=== PATIENT | male | born 1990 | race Caucasian/White ===

== ENCOUNTER 2017-02-21 13:56 | Emergency (ER) | payer BC ==
[2017-02-21 14:26] VITALS: BP 141/92
[2017-02-21] MEDS ORDERED: cefTRIAXone VIAL(*) 250 MG VIAL IM ONE (15:13)
[2017-02-21] MEDS ORDERED: Azithromycin TAB* 250 MG PO ONE (15:15)
[2017-02-21] MEDS ORDERED: Lidocaine 1% MPF* 2 ML VIAL INJ ONE (15:17)
--- NOTE | 2017-02-21 17:59 | UC ---
Complaint Male HPI - HPI Summary HPI Summary: HAS HAD SEVERAL DAYS OF DISCOMFORT WITH URINATION, NO DISCHARGE. NO LESIONS. HAS HAD LOW GRADE FEVER AND SORE THROAT. TENDERNESS IN (SUPERIOR POLE) OF LEFT TESTICLE. NO RECTAL PAIN. HAS HAD RECENT UNPROTECTED ORAL SEX WITH NEW PARTNER. NO HISTORY OF PREVIUOUS STDS. NO RASHES OR LESIONS, BUT ITCHY AREA NEAR LEFT ( DENS) OF PENIS. - History of Current Complaint Chief Complaint: UCGU Stated Complaint: URINARY ISSUE Time Seen by Provider: 02/21/17 14:31 Hx Obtained From: Patient Onset/Duration: Gradual Onset, Lasting Days, Still Present Timing: Intermittent Severity Initially: Mild Severity Currently: Mild Pain Intensity: 1 Pain Scale Used: 0-10 Numeric Location: Testicle Character: Burning Aggravating Factor(s): Voiding Associated Signs And Symptoms: Positive: Negative, Dysuria. Negative: Back Pain , Fever, Hematuria, Constipation, Blood in Stool, Rectal Pain, Appetite, Nausea , Vomiting(# Of Episodes =), Penile Swelling, Penile Discharge - Risk Factors Testicular Torsion: Negative - Allergies/Home Medications Allergies/Adverse Reactions: Allergies Allergy/AdvReac Type Severity Reaction Status Date / Time Shellfish Allergy Allergy Severe DYSPNEA, Verified 03/29/13 19:36 HIVES, NUMB/TINGLING MOUTH Sulfa Drugs Allergy Severe SEE NOTE Verified 03/29/13 19:36 BEESTINGS Allergy Severe Swelling Uncoded 03/29/13 19:36 Home Medications: Home Medications Ascorbic Acid [Vitamin C] 1,000 mg PO 02/21/17 [History] Echinacea [Echinacea Plus] 1 cap PO 02/21/17 [History] PMH/Surg Hx/FS Hx/Imm Hx Previously Healthy: Yes - Surgical History Surgical History: None - Family History Known Family History: Negative: Diabetes, Renal Disease, Blood Disorder - Social History Occupation: Employed Full-time Lives: With Family Alcohol Use: Rare Substance Use Type: None Smoking Status (MU): Never Smoked Tobacco Review of Systems Constitutional: Negative Skin: Negative Eyes: Negative ENT: Negative Respiratory: Negative Cardiovascular: Negative Gastrointestinal: Negative Genitourinary: Dysuria Motor: Negative Neurovascular: Negative Musculoskeletal: Negative Neurological: Negative Psychological: Negative All Other Systems Reviewed And Are Negative: Yes Physical Exam Triage Information Reviewed: Yes Appearance: Well-Appearing, No Pain Distress, Well-Nourished Vital Signs: Initial Vital Signs Temp 99.2 F 02/21/17 14:20 Pulse 96 02/21/17 14:20 Resp 18 02/21/17 14:20 BP 141/92 02/21/17 14:20 Pulse Ox 98 02/21/17 14:20 Vital Signs Reviewed: Yes Eye Exam: Normal Eyes: Positive: Conjunctiva Clear ENT: Positive: Hearing grossly normal, Pharyngeal erythema, TMs normal, Tonsillar swelling Dental Exam: Normal Neck exam: Normal Neck: Positive: Supple, Nontender, No Lymphadenopathy Respiratory Exam: Normal Respiratory: Positive: Chest non-tender, Lungs clear, Normal breath sounds, No respiratory distress, No accessory muscle use Cardiovascular Exam: Normal Cardiovascular: Positive: RRR, No Murmur, Pulses Normal Abdominal Exam: Normal Abdomen Description: Positive: Nontender, No Organomegaly, Soft, Other: - NO TESTICULAR TENDERNESS DURING PHYSICAL EXAMINATION. NO LESIONS, RASHES, OR DISCHARGE OF PENIS DURING PHYSICAL EXAM Bowel Sounds: Positive: Present Musculoskeletal Exam: Normal Musculoskeletal: Positive: Strength Intact, ROM Intact Neurological Exam: Normal Psychological Exam: Normal Skin Exam: Normal Complaint Male Course/Dx - Differential Dx/Diagnosis Differential Diagnosis/HQI/PQRI: Epididymitis, Prostatitis, Urinary Tract Infection Provider Diagnoses: DYSURIA; STD PROPHYLAXIS; TONSILLITS Discharge - Discharge Plan Condition: Stable Disposition: HOME Patient Education Materials: Dysuria (ED) Referrals: [facility] [place] PHYSICIAN REFERRAL [Outside] Non Staff,Doctor [Medical Doctor] - Tony Alvarado MD [Medical Doctor] -
== END 2017-02-21 15:33 | disposition home or self-care (01) ==
LOC: UCEAST 13:56
DX: R30.0 Dysuria (principal); J03.90 Acute tonsillitis, unspecified; Z88.2 Allergy status to sulfonamides; Z91.013 Allergy to seafood; Z91.030 Bee allergy status; Z20.2 Contact with and (suspected) exposure to infections with a predominantly sexual mode of transmission
CPT/HCPCS: 81003; 87070; 87491; 87591; 87651; 96372; 99202; A9270-GY; G0463; J0696

== ENCOUNTER 2017-02-26 09:25 | Emergency (ER) | payer BC ==
[2017-02-26 09:32] VITALS: BP 151/91
--- NOTE | 2017-02-26 10:59 | UC ---
Complaint Male HPI - HPI Summary HPI Summary: complaint of sore throat took vitamin C and echinachea- left testicle at the same time started over 2 weeks ago started to feels a pulsing tickle and dull pain with urination on left side of penis- seen the next day at urgent care treated with antibiotics and sore throat and burning with urination subsided- negative for chlamydia, gonnorhea complaint that he still has a dull ache in urinary tract and feels like he has urinate frequently dull achy pain worse when he is sitting since taking antibiotics steady stream of urine denies fever and chills denies lower back and flank pain stool looser since taking antibiotics right inguinal hernia for over 10 years never followed up with urology not taking any medication for pain - History of Current Complaint Hx Obtained From: Patient <Glenny Hutchison - Last Filed: 02/26/17 11:56> <Rosa Cosme - Last Filed: 02/26/17 14:17> - History of Current Complaint Chief Complaint: UCGU Stated Complaint: RECHECK UTI Time Seen by Provider: 02/26/17 10:41 - Allergies/Home Medications Allergies/Adverse Reactions: Allergies Allergy/AdvReac Type Severity Reaction Status Date / Time Shellfish Allergy Allergy Severe DYSPNEA, Verified 03/29/13 19:36 HIVES, NUMB/TINGLING MOUTH Sulfa Drugs Allergy Severe SEE NOTE Verified 03/29/13 19:36 BEESTINGS Allergy Severe Swelling Uncoded 03/29/13 19:36 PMH/Surg Hx/FS Hx/Imm Hx Previously Healthy: No - URI symptoms Cardiovascular History: Hypertension - Surgical History Surgical History: None - Family History Known Family History: Negative: Hypertension, Diabetes, Renal Disease, Blood Disorder - Social History Occupation: Employed Full-time Lives: With Family Alcohol Use: Rare Substance Use Type: None Smoking Status (MU): Never Smoked Tobacco <Glenny Hutchison - Last Filed: 02/26/17 11:56> Review of Systems Constitutional: Negative Skin: Negative Eyes: Negative ENT: Negative Respiratory: Negative Cardiovascular: Negative Gastrointestinal: Negative Genitourinary: Frequency Motor: Negative Neurovascular: Negative Musculoskeletal: Negative Neurological: Negative Psychological: Negative All Other Systems Reviewed And Are Negative: Yes <Glenny Hutchison - Last Filed: 02/26/17 11:56> Physical Exam Triage Information Reviewed: Yes Appearance: No Pain Distress, Well-Nourished, Obese Vital Signs: Initial Vital Signs Temp 98.2 F 02/26/17 09:27 Pulse 76 02/26/17 09:27 Resp 16 02/26/17 09:27 BP 151/91 02/26/17 09:27 Pulse Ox 100 02/26/17 09:27 Vital Signs Reviewed: Yes Eye Exam: Normal Eyes: Positive: Conjunctiva Clear ENT: Positive: Pharynx normal, TMs normal Neck: Positive: No Lymphadenopathy Respiratory: Positive: Lungs clear, Normal breath sounds, No respiratory distress, No accessory muscle use Cardiovascular: Positive: RRR, No Murmur, Pulses Normal Abdomen Description: Positive: Nontender, No Organomegaly, Soft. Negative: CVA Tenderness (R), CVA Tenderness (L), Distended, Guarding Bowel Sounds: Positive: Present Musculoskeletal: Positive: No Edema Neurological: Positive: Alert Psychological Exam: Normal Skin Exam: Normal - Additional Comments exam - no penile lesion or discharge, no testicular massses or tenderness, lumps, small right inguinal hernia-non tender refuses prostate exam <Glenny Hutchison - Last Filed: 02/26/17 11:56> Vital Signs: Initial Vital Signs Temp 98.2 F 02/26/17 09:27 Pulse 76 02/26/17 09:27 Resp 16 02/26/17 09:27 BP 151/91 02/26/17 09:27 Pulse Ox 100 02/26/17 09:27 <Rosa Cosme - Last Filed: 02/26/17 14:17> Complaint Male Course/Dx - Differential Dx/Diagnosis Differential Diagnosis/HQI/PQRI: Prostatitis, Urinary Tract Infection Provider Diagnoses: urinary frequency- possible prostatitis, elevated blood pressure <Glenny Hutchison - Last Filed: 02/26/17 11:56> Discharge <Glenny Hutchison - Last Filed: 02/26/17 11:56> <Rosa Cosme - Last Filed: 02/26/17 14:17> - Discharge Plan Condition: Stable Disposition: HOME Patient Education Materials: Prostatitis (ED) Referrals: No Primary Care Phys,NOPCP [Primary Care Provider] - Tony Alvarado MD [Medical Doctor] - Additional Instructions: Please call Dr Bassett today for further evaluation and treatment Increase fluids and rest Take acetaminophen for fever or pain Please review your discharge instructions. If your symptoms do not improve please call your primary care provider or return to urgent care. Your blood pressure is elevated. Please contact your primary care provider within 1 -4 weeks for further evaluation. Attestation Statement User Type: Provider - I was available for consult. This patient was seen by the TIM. The patient was not presented to, seen by, or examined by me. -Ida <Rosa Cosme - Last Filed: 02/26/17 14:17>
== END 2017-02-26 11:24 | disposition home or self-care (01) ==
LOC: UCEAST 09:25
DX: R35.0 Frequency of micturition (principal); R03.0 Elevated blood-pressure reading, without diagnosis of hypertension
CPT/HCPCS: 81003; 87086; 99211; G0463

== ENCOUNTER 2017-08-22 07:59 | Emergency (ER) | payer BC ==
[2017-08-22 08:08] VITALS: BP 149/89
--- NOTE | 2017-08-22 08:51 | UC ---
Respiratory Complaint HPI - HPI Summary HPI Summary: 27 YO MALE WITH NASAL CONGESTION /POST NASAL DRIP AND SORE THROAT X 2-3 DAYS NO FEVER NO SILVA OR MYALGIAS NO CP OR SOB - History of Current Complaint Chief Complaint: UCRespiratory Stated Complaint: SORE THROAT Time Seen by Provider: 08/22/17 08:45 Hx Obtained From: Patient Onset/Duration: Gradual Onset, Lasting Days Severity Initially: Mild Severity Currently: Mild Pain Intensity: 3 Pain Scale Used: 0-10 Numeric Character: Cough: Nonproductive Aggravating Factors: Nothing Associated Signs And Symptoms: Positive: Nasal Congestion - Allergies/Home Medications Allergies/Adverse Reactions: Allergies Allergy/AdvReac Type Severity Reaction Status Date / Time Shellfish Allergy Allergy Severe DYSPNEA, Verified 08/22/17 08:08 HIVES, NUMB/TINGLING MOUTH Sulfa Drugs Allergy Severe SEE NOTE Verified 08/22/17 08:08 BEESTINGS Allergy Severe Swelling Uncoded 03/29/13 19:36 PMH/Surg Hx/FS Hx/Imm Hx Previously Healthy: Yes - Surgical History Surgical History: None - Family History Known Family History: Positive: Cardiac Disease, Hypertension, Diabetes Negative: Renal Disease, Blood Disorder - Social History Alcohol Use: Rare Substance Use Type: None Smoking Status (MU): Never Smoked Tobacco Review of Systems Constitutional: Negative Skin: Negative Eyes: Negative ENT: Sore Throat, Ear Ache, Nasal Discharge - PND, Sinus Congestion Respiratory: Negative Cardiovascular: Negative Gastrointestinal: Negative Genitourinary: Negative Motor: Negative Neurovascular: Negative Musculoskeletal: Negative Neurological: Negative Psychological: Negative Is Patient Immunocompromised?: No All Other Systems Reviewed And Are Negative: Yes Physical Exam Triage Information Reviewed: Yes Appearance: Well-Appearing, No Pain Distress, Well-Nourished Vital Signs: Initial Vital Signs Temp 97.3 F 08/22/17 08:03 Pulse 79 08/22/17 08:03 Resp 14 08/22/17 08:03 BP 149/89 08/22/17 08:03 Pulse Ox 100 08/22/17 08:03 Eyes: Positive: Conjunctiva Clear ENT: Positive: Hearing grossly normal, Pharyngeal erythema, Nasal congestion, TMs normal, Uvula midline. Negative: Trismus, Muffled voice, Hoarse voice, Dental tenderness, Sinus tenderness Neck: Positive: Supple, Nontender, No Lymphadenopathy Respiratory: Positive: Lungs clear, Normal breath sounds, No respiratory distress, No accessory muscle use Cardiovascular: Positive: RRR, No Murmur Abdomen Description: Positive: Nontender, No Organomegaly Musculoskeletal: Positive: ROM Intact, No Edema Neurological: Positive: Alert Psychological Exam: Normal Skin Exam: Normal UC Diagnostic Evaluation - Laboratory Pertinent Lab Values Are: WNL - STREP(-) O2 Sat by Pulse Oximetry: 100 - NORMAL/NOT HYPOXIC Respiratory Course/Dx - Differential Dx/Diagnosis Provider Diagnoses: VIRAL URI Discharge - Discharge Plan Condition: Stable Disposition: HOME Patient Education Materials: Upper Respiratory Infection (ED) Referrals: [facility] [place] PHYSICIAN REFERRAL [Outside] - If Needed (call this number to help you find a MD) Additional Instructions: AFRIN NASAL SPRAY: 2 SPRAYS EACH NOSTRIL 3X DAY FOR 3 DAYS
== END 2017-08-22 08:56 | disposition home or self-care (01) ==
LOC: UCEAST 07:59
DX: J06.9 Acute upper respiratory infection, unspecified (principal); Z88.2 Allergy status to sulfonamides; Z91.030 Bee allergy status; Z91.013 Allergy to seafood
CPT/HCPCS: 87651; 99211; G0463

== ENCOUNTER 2017-11-07 12:46 | Emergency (ER) | payer BC ==
[2017-11-07 13:45] VITALS: BP 0/0
--- NOTE | 2017-11-07 13:53 | UC ---
FLU HPI - HPI Summary HPI Summary: ONSET OF FATIGUE, FEVER, CHILLS, MALAISE, SILVA, PND LAST NIGHT. NO COUGH. TMAX 102.7. NO FLU SHOT THIS SEASON. - History of Current Complaint Chief Complaint: UCGeneralIllness Stated Complaint: FLU SYMPTOMS Time Seen by Provider: 11/07/17 13:00 Hx Obtained From: Patient Onset/Duration: Gradual Onset, Lasting Hours, Still Present Severity Currently: Moderate Severity Initially: Moderate Pain Intensity: 8 Pain Scale Used: 0-10 Numeric Associated Signs & Symptoms: Positive: Fever, Myalgia, Sore Throat, Headache. Negative: Cough, Nasal Congestion - Allergy/Home Medications Allergies/Adverse Reactions: Allergies Allergy/AdvReac Type Severity Reaction Status Date / Time shellfish derived Allergy Rash Verified 11/07/17 13:06 Sulfa (Sulfonamide Allergy unk Verified 11/07/17 13:05 Antibiotics) BEESTINGS Allergy Severe Swelling Uncoded 03/29/13 19:36 PMH/Surg Hx/FS Hx/Imm Hx Previously Healthy: Yes - Surgical History Surgical History: None - Family History Known Family History: Positive: Cardiac Disease, Hypertension, Diabetes Negative: Renal Disease, Blood Disorder - Social History Alcohol Use: Rare Substance Use Type: None Smoking Status (MU): Never Smoked Tobacco Review of Systems Constitutional: Fever, Chills, Fatigue ENT: Other - PND Respiratory: Negative Cardiovascular: Negative Gastrointestinal: Negative Musculoskeletal: Myalgia Neurological: Headache All Other Systems Reviewed And Are Negative: Yes Physical Exam Triage Information Reviewed: Yes Appearance: No Pain Distress, Well-Nourished, Ill-Appearing - MILD Vital Signs: Initial Vital Signs Temp 99 F 11/07/17 13:07 Pulse 100 11/07/17 13:07 Resp 16 11/07/17 13:07 BP 167/85 11/07/17 13:07 Pulse Ox 99 11/07/17 13:07 Vital Signs Reviewed: Yes Eyes: Positive: Conjunctiva Clear ENT: Positive: Hearing grossly normal, Pharynx normal, TMs normal Neck: Positive: Supple, Nontender, No Lymphadenopathy Respiratory Exam: Normal Cardiovascular: Positive: Tachycardia Abdomen Description: Positive: Soft Musculoskeletal: Positive: No Edema Neurological: Positive: Alert Psychological: Positive: Age Appropriate Behavior Skin: Negative: rashes Diagnostics - Laboratory Diagnostic Studies Completed/Ordered: FLU NEG Flu Course/Dx - Differential Dx/Diagnosis Provider Diagnoses: INFLUENZA-LIKE ILLNESS Discharge - Discharge Plan Condition: Stable Disposition: HOME Prescriptions: Oseltamivir CAP* [Tamiflu CAP*] 75 mg PO BID #10 cap Patient Education Materials: Influenza (ED), Viral Syndrome (ED) Referrals: No Primary Care Phys,NOPCP [Primary Care Provider] - Additional Instructions: SWAB NEGATIVE FOR INFLUENZA. GIVEN YOUR CLINICAL PRESENTATION WILL TREAT WITH TAMIFLU ANYWAY - TWICE DAILY FOR 5 DAYS. OTC MEDS NEEDED FOR FEVER, BODY ACHES. STAY WELL HYDRATED AND RESTED. SEEK FOLLOW-UP IF YOU ARE NOT IMPROVING EXPECTED. YOUR BLOOD PRESSURE WAS ELEVATED TODAY (167/85). THIS MAY BE DUE TO YOUR ACUTE CONDITION. MONITOR AND FOLLOW-UP WITH A PCP WITHIN 4 WEEKS IF IT HAS NOT RETURNED TO NORMAL. CALL THE NUMBER BELOW FOR ASSISTANCE IN ESTABLISHING WITH A PCP An additional resource available to assist in finding the appropriate physician for your health care needs is the [facility] ([facility]). You may contact them by calling [phone].
== END 2017-11-07 13:50 | disposition home or self-care (01) ==
LOC: UCEAST 12:46
DX: J11.1 Influenza due to unidentified influenza virus with other respiratory manifestations (principal); Z88.2 Allergy status to sulfonamides
CPT/HCPCS: 87502; 99212; G0463

== ENCOUNTER 2018-05-14 19:01 | Emergency (ER) | payer BC ==
[2018-05-14 19:07] VITALS: BP 164/82
--- NOTE | 2018-05-14 19:11 | UC ---
Skin Complaint HPI - HPI Summary HPI Summary: 28 yo male presents with diffuse bug bites. He tells me that about 4-5 years ago he had bed bugs and these look and feel the same. He has been at this apartment for the last 4-5 years and has never had an issue, but over the last week has noticed he will wake up with small bites all over his body. He bugged bombed his room and had relief for a day or two, but bites came back. Very itchy. Denies fever or chills. - History of Current Complaint Chief Complaint: UCSkin Time Seen by Provider: 05/14/18 19:11 Stated Complaint: BUG BITES Hx Obtained From: Patient Onset/Duration: Sudden Onset Pain Intensity: 0 - Allergy/Home Medications Allergies/Adverse Reactions: Allergies Allergy/AdvReac Type Severity Reaction Status Date / Time shellfish derived Allergy Rash Verified 05/14/18 19:08 Sulfa (Sulfonamide Allergy unk Verified 05/14/18 19:08 Antibiotics) BEESTINGS Allergy Severe Swelling Uncoded 05/14/18 19:08 Review of Systems Constitutional: Negative Skin: Other - Bug bites Eyes: Negative ENT: Negative Respiratory: Negative Cardiovascular: Negative Neurological: Negative Psychological: Negative All Other Systems Reviewed And Are Negative: Yes PMH/Surg Hx/FS Hx/Imm Hx - Additional Past Medical History Additional PMH: None - Surgical History Surgical History: None - Family History Known Family History: Positive: Cardiac Disease, Hypertension, Diabetes Negative: Renal Disease, Blood Disorder - Social History Occupation: Employed Full-time Lives: With Family Alcohol Use: Rare Substance Use Type: None Smoking Status (MU): Never Smoked Tobacco Physical Exam - Summary Physical Exam Summary: GENERAL: NAD. WDWN. No pain distress. SKIN: Diffuse bug bites with some small scabs. No linear burrows or bites in finger webs. No streaking, bleeding, or drainage. NECK: Supple. Nontender. No lymphadenopathy. CHEST: No accessory muscle use. Breathing comfortably and in no distress. CV: Pulses intact. Cap refill <2seconds NEURO: Alert. PSYCH: Age appropriate behavior. Triage Information Reviewed: Yes Vital Signs: Initial Vital Signs Temp 98.8 F 05/14/18 19:05 Pulse 86 05/14/18 19:05 Resp 18 05/14/18 19:05 BP 164/82 09/20/18 19:05 Pulse Ox 98 05/14/18 19:05 Vital Signs Reviewed: Yes Course/Dx - Course Course Of Treatment: Suspect bed bugs. Advised to try another bug bomb and wash everything he has in his bedroom. Will provide him with permethrin to treat for any mites - Diagnoses Provider Diagnoses: Bed bugs Discharge - Sign-Out/Discharge Documenting (check all that apply): Patient Departure All imaging exams completed and their final reports reviewed: No Studies - Discharge Plan Condition: Stable Disposition: HOME Prescriptions: Permethrin 5% CREAM* 1 applic TOPICAL SEE INSTRUCTIONS #2 tube Patient Education Materials: Bed Bugs (ED) Referrals: No Primary Care Phys,NOPCP [Primary Care Provider] - Additional Instructions: If you develop a fever, shortness of breath, chest pain, new or worsening symptoms - please call your PCP or go to the ED. Your blood pressure was high at todays visit. Please see your primary provider within 4 weeks for recheck and re-evaluation. - Billing Disposition and Condition Condition: STABLE Disposition: Home - Attestation Statements Provider Attestation: I was available for consult. This patient was seen by the TIM. The patient was not presented to, seen by, or examined by me. -Ida
== END 2018-05-14 19:22 | disposition home or self-care (01) ==
LOC: UCEAST 19:01
DX: T14.8XXA Other injury of unspecified body region, initial encounter (principal); W57.XXXA Bitten or stung by nonvenomous insect and other nonvenomous arthropods, initial encounter; Y93.9 Activity, unspecified; Y92.003 Bedroom of unspecified non-institutional (private) residence as the place of occurrence of the external cause; Z88.2 Allergy status to sulfonamides; Z91.030 Bee allergy status; Z91.013 Allergy to seafood
CPT/HCPCS: 99212; G0463

== ENCOUNTER 2018-08-22 09:28 | Emergency (ER) | payer BC ==
[2018-08-22 09:42] VITALS: BP 157/83
--- NOTE | 2018-08-22 09:42 | UC ---
Throat Pain/Nasal Manish HPI - HPI Summary HPI Summary: 28-year-old male comes in to urgent care today with chief complaint of runny nose and sore throat. Been going about 7 days. Rhinorrhea is yellow. No chest congestion no bodyaches. Has been taking ibuprofen occasionally which does help him feel little bit better. His roommate is on antibiotics for very similar symptoms that have been going on for slightly longer period of time. - History of Current Complaint Stated Complaint: SINUS,SORE THROAT Time Seen by Provider: 08/22/18 09:32 - Allergies/Home Medications Allergies/Adverse Reactions: Allergies Allergy/AdvReac Type Severity Reaction Status Date / Time shellfish derived Allergy Rash Verified 05/14/18 19:08 Sulfa (Sulfonamide Allergy unk Verified 05/14/18 19:08 Antibiotics) BEESTINGS Allergy Severe Swelling Uncoded 05/14/18 19:08 PMH/Surg Hx/FS Hx/Imm Hx Previously Healthy: Yes - Surgical History Surgical History: None - Family History Known Family History: Positive: Cardiac Disease, Hypertension, Diabetes Negative: Renal Disease, Blood Disorder - Social History Alcohol Use: Rare Substance Use Type: None Smoking Status (MU): Never Smoked Tobacco Review of Systems All Other Systems Reviewed And Are Negative: Yes Constitutional: Positive: Negative Skin: Positive: Negative Eyes: Positive: Negative ENT: Positive: Sore Throat, Nasal Discharge, Sinus Congestion Respiratory: Positive: Negative Cardiovascular: Positive: Negative Gastrointestinal: Positive: Negative Motor: Positive: Negative Neurovascular: Positive: Negative Musculoskeletal: Positive: Negative Neurological: Positive: Negative Psychological: Positive: Negative Is Patient Immunocompromised?: No Physical Exam Triage Information Reviewed: Yes Appearance: No Pain Distress, Well-Nourished, Ill-Appearing - mild Vital Signs Reviewed: Yes Eye Exam: Normal Eyes: Positive: Conjunctiva Clear ENT: Positive: Pharyngeal erythema, Nasal congestion, Nasal drainage, TMs normal Neck exam: Normal Neck: Positive: Supple Respiratory: Positive: Lungs clear, Normal breath sounds, No respiratory distress Cardiovascular: Positive: RRR Musculoskeletal Exam: Normal Musculoskeletal: Positive: Strength Intact, ROM Intact Neurological Exam: Normal Neurological: Positive: Alert, Muscle Tone Normal Psychological Exam: Normal Psychological: Positive: Age Appropriate Behavior Skin Exam: Normal Throat Pain/Nasal Course/Dx - Course Course Of Treatment: DISCUSSED VIRAL VERSES BACTERIAL INFECTION AND THE ROLE OF ANTIBIOTICS. THE PATIENT WISHES TO BE ON ANTIBIOTIC AT THIS TIME. - Differential Dx/Diagnosis Provider Diagnosis: Sinusitis Discharge - Sign-Out/Discharge Documenting (check all that apply): Patient Departure All imaging exams completed and their final reports reviewed: No Studies - Discharge Plan Condition: Stable Disposition: HOME Prescriptions: Amoxicillin/Clavulanate TAB* [Augmentin TAB 875*] 875 mg PO BID #20 tab Patient Education Materials: Sinusitis (ED) Referrals: [facility] [place] PHYSICIAN REFERRAL [Outside] Additional Instructions: FOLLOW UP WITH YOUR DOCTOR IF NOT COMPLETELY IMPROVED. GET RECHECKED FOR ANY WORSENING OF YOUR CONDITION OR QUESTIONS OR CONCERNS. - Billing Disposition and Condition Condition: STABLE Disposition: Home
== END 2018-08-22 09:45 | disposition home or self-care (01) ==
LOC: UCEAST 09:28
DX: J32.9 Chronic sinusitis, unspecified (principal); Z88.2 Allergy status to sulfonamides; Z91.030 Bee allergy status; Z91.013 Allergy to seafood
CPT/HCPCS: 99212; G0463